=== PATIENT | female | born 1980 | race Caucasian/White ===

== ENCOUNTER → 2017-03-07 | Outpatient (CLI) | payer OTHER ==
[~2017-03-07] MED LIST: Prenatal Vitamin OR
--- NOTE | 2017-03-07 15:14 | REP ---
Three-phase bone scan of the hips: History: Right hip pain. Technique: 22.0 millicuries technetium 99m MDP is injected and standard three-phase imaging was acquired. Scintigraphic findings: Anterior and posterior flow images are normal. Blood pool images demonstrate normal symmetric soft tissue uptake. Delayed scan images demonstrate a subtle asymmetric focus of increased uptake along the medial cortex of the neck of the femur on the right near the lesser trochanter. This is compatible with early stress injury or stress periostitis although it is nonspecific. Correlation with right hip radiographs suggested. MRI scanning could provide additional information if warranted. Impression: Focus of increased uptake along the medial cortex of the femoral neck on the right question early stress injury versus other lesion. Signed by Michael Hernandez MD 03/07/2017 05:19 P
== END ==
LOC: M RAD 10:18
PROVIDERS: ATTEND Orthopaedic Surgery
DX: R93.7 Abnormal findings on diagnostic imaging of other parts of musculoskeletal system (principal)
CPT/HCPCS: 78315; A9503